=== PATIENT | male | born 1965 | race Hispanic/Latino ===

== ENCOUNTER → 2019-10-26 | Outpatient (CLI) | payer OTHER ==
--- NOTE | 2019-10-26 09:57 | Diagnostic Imaging Report ---
Left knee MRI without contrast. History: Knee pain. Degenerative joint disease. Instability. Decreased range of motion. Pain not responding to conservative management Comparison: None. Technique: Multiplanar multi-sequence MRI of the knee without contrast. Findings: Medial compartment: Complex tear involving the posterior horn and body segments of the medial meniscus is seen on sagittal image 24. Mild articular cartilage fraying and fissuring in the medial compartment. The medial collateral ligament complex is intact. Lateral compartment: No meniscal tear or cartilage abnormality. The LCL complex is normal. Intercondylar notch: The ACL and PCL are intact. Patellofemoral compartment: Mild articular cartilage fraying and fissuring in the patellofemoral compartment.. Extensor mechanism: The quadriceps and patellar tendons are normal. Other findings: There is a joint effusion and synovitis. There is no acute fracture, subluxation or avascular necrosis. Small Nelson's cyst. IMPRESSION: Complex medial meniscus tear with mild degenerative arthrosis in the medial compartment of the knee. Signed by: Dr. Clif Fernandez M.D. on 10/26/2019 9:54 AM
--- NOTE | 2019-10-26 11:22 | Diagnostic Imaging Report ---
MRI of the right foot without contrast. History: Foot pain. Plantar pain. Decreased range of motion. Pain not responding to conservative management.. Technique: Multiplanar multisequence MRI of the foot without contrast Comparison: None Findings: Achilles tendon and plantar fascia: The Achilles tendon is intact. Mid substance degeneration with partial tearing involving the medial cord of the plantar fascia at the inferior calcaneal insertion site. Mild adjacent soft tissue edema. Findings consistent with plantar fasciitis. Cartilage and bone: Negative for osteochondral lesion of the tibiotalar and subtalar joints. Negative for fracture, osteonecrosis, or dislocation. Scattered degenerative change. No ligamentous or tendon tear. The visualized neurovascular bundles are intact. Other findings: Small tibiotalar joint effusion and mild synovitis. Impression: Mid substance degeneration with partial tearing involving the medial cord of the plantar fascia at the inferior calcaneal insertion site. Mild adjacent soft tissue edema. Findings consistent with plantar fasciitis. Signed by: Dr. Clif Fernandez M.D. on 10/26/2019 11:19 AM
== END ==
LOC: MRI 07:49
PROVIDERS: ATTEND Family Medicine
DX: M17.12 Unilateral primary osteoarthritis, left knee (principal); M25.362 Other instability, left knee; M19.071 Primary osteoarthritis, right ankle and foot; M79.671 Pain in right foot

== ENCOUNTER → 2019-11-14 | Day surgery (SDC) | payer OTHER ==
[~2019-11-14] MED LIST: AMLODIPINE BESYL5 MG PO; BUPIVACAINE 0.5%/EPI 30 ML SDV INJ ONE; CEFAZOLIN SOD 1 GM/NS 50ML 100 ML IV ONE; CENTRUM MEN'S1 EACH PO; DEXAMETHASONE SOD PHOS INJ 4 MG/ML VIAL ONE; FENTANYL CITRATE/PF 100MCG/2 ML INJ ONE; KETOROLAC TROMETHAMINE 30 MG/ML VIAL ONE; LIDOCAINE HCL 2% LOCAL INJ 5 ML SDV VIAL INJ ONE; LOVASTATIN40 MG PO; MIDAZOLAM HCL 2 MG/2 ML VIAL ONE; ONDANSETRON HCL INJ 2MG/ML 2ML 2 MG/ML VIAL ONE; PROPOFOL IV EMULSION 10 MG/ML 20 ML VIAL ONE; SEVOFLURANE INHAL SOLN 250 ML PEN BTL ONE; TESTOSTERONE5 GM SC; VITAMIN D31 GM PO
[2019-11-14 11:10] VITALS: BP 127/90
--- NOTE | 2019-11-19 20:51 | Operative Report ---
DATE OF PROCEDURE: 11/14/2019 SURGEON: Tyson Reynoso MD PREOPERATIVE DIAGNOSES: Left knee medial meniscus tear, left knee degenerative joint disease of the knee. POSTOPERATIVE DIAGNOSES: Left knee medial meniscus tear, left knee lateral meniscus tear, left knee degenerative joint disease of the knee. OPERATIONS AND PROCEDURES PERFORMED: The patient underwent left knee examination under anesthesia, left knee arthroscopy, left knee partial medial meniscectomy, left knee partial lateral meniscectomy, left knee chondroplasty of the patella, the trochlea, the medial femoral condyle, and medial tibial plateau, and the lateral tibial plateau. GLASS TOUGHENING OPERATOR: There was no social media assistant. ANESTHESIA: General endotracheal. IV FLUIDS: As per the anesthesia record. BRIEF DISCUSSION OF THE PATIENT'S OPERATIVE PROCEDURE: Mr. Yee was taken to the operating room and placed in supine position on the operating table. Following induction of general anesthesia as well as endotracheal intubation, the patient's left lower extremity was examined under anesthesia. He was found to have a mild effusion within the knee joint, but otherwise ligamentously stable knee. The patient's lower extremity was prepped and draped in surgical fashion. A two-port technique used to provide this patient arthroscopic evaluation of the knee joint. Examination of suprapatellar pouch and medial lateral gutters found no evidence of loose bodies. There was, however, evidence of chondromalacia of the patellar and trochlear surfaces. The scope was advanced to the medial compartment. Examination of medial compartment demonstrated a torn macerated medial meniscus. There was also chondromalacia of the articulating surfaces. A combination of biting forceps and a motorized shaver used to resect the torn portion of meniscus. Chondroplasties of the medial femoral condyle and medial tibial plateau were performed at this time. Scope was then advanced to the intercondylar notch. The anterior cruciate ligament was identified and found to be intact. Scope was advanced to the lateral compartment and there was a tear in the lateral meniscus. There was also chondromalacia of the lateral tibial plateau. The combination of biting forceps and a motorized shaver were used to resect the torn portion of the lateral meniscus. A chondroplasty of the lateral tibial plateau was performed at this time. Scope was advanced into the suprapatellar pouch and chondroplasties of the patellar and trochlear performed. The knee was deflated with sterile normal saline. The portal sites were closed with 4-0 suture. The portal sites as well as knee itself was injected with 0.5% Marcaine with epinephrine. Sterile dressings were applied. The patient was awakened and taken to Postanesthesia Care Unit in stable condition. MD YUE Beltran/JANEY /[id number]
== END | disposition home or self-care (01) ==
LOC: OR 07:05
PROVIDERS: ATTEND Specialist
DX: S83.222A Peripheral tear of medial meniscus, current injury, left knee, initial encounter (principal); S83.282A Other tear of lateral meniscus, current injury, left knee, initial encounter; M17.12 Unilateral primary osteoarthritis, left knee; M22.42 Chondromalacia patellae, left knee; M72.2 Plantar fascial fibromatosis; E78.00 Pure hypercholesterolemia, unspecified; H91.90 Unspecified hearing loss, unspecified ear; I10 Essential (primary) hypertension; F41.9 Anxiety disorder, unspecified; X58.XXXA Exposure to other specified factors, initial encounter; Z01.810 Encounter for preprocedural cardiovascular examination; Z01.812 Encounter for preprocedural laboratory examination; Z11.59 Encounter for screening for other viral diseases; Z68.33 Body mass index [BMI] 33.0-33.9, adult
CPT/HCPCS: 93005; J0690; J1100; J1885; J2001; J2250; J2405; J3010; U0002

== ENCOUNTER 2019-12-14 07:55 | Outpatient (RCR) | payer OTHER ==
[~2019-12-14 07:55] MED LIST changes: -BUPIVACAINE 0.5%/EPI 30 ML SDV INJ ONE; -CEFAZOLIN SOD 1 GM/NS 50ML 100 ML IV ONE; -DEXAMETHASONE SOD PHOS INJ 4 MG/ML VIAL ONE; -FENTANYL CITRATE/PF 100MCG/2 ML INJ ONE; -KETOROLAC TROMETHAMINE 30 MG/ML VIAL ONE; -LIDOCAINE HCL 2% LOCAL INJ 5 ML SDV VIAL INJ ONE; -MIDAZOLAM HCL 2 MG/2 ML VIAL ONE; -ONDANSETRON HCL INJ 2MG/ML 2ML 2 MG/ML VIAL ONE; -PROPOFOL IV EMULSION 10 MG/ML 20 ML VIAL ONE; -SEVOFLURANE INHAL SOLN 250 ML PEN BTL ONE
== END 2019-12-26 ==
LOC: PT 07:55
PROVIDERS: ATTEND Specialist
DX: M25.562 Pain in left knee (principal); M25.662 Stiffness of left knee, not elsewhere classified; M62.81 Muscle weakness (generalized)